=== PATIENT | male | born 1945 | race Caucasian/White ===

== ENCOUNTER 2024-12-15 13:46 | Emergency (ER) | payer MEDICARE, OTHER ==
[2024-12-15] MEDS ORDERED: Lidocaine 1%/Epinephrine 1:100K 10 ML VIAL ONE (14:12)
[2024-12-15] MEDS ORDERED: Sulfameth/Trimethoprim DS 800-160mg TAB ONE (14:29)
== END 2024-12-15 14:31 | disposition home or self-care (01) ==
LOC: BURERS 13:46
DX: L02.212 Cutaneous abscess of back [any part, except buttock and flank] (principal); F17.290 Nicotine dependence, other tobacco product, uncomplicated
CPT/HCPCS: 10060

== ENCOUNTER 2025-01-01 14:00 | Emergency (ER) | payer MEDICARE | END 2025-01-01 15:14 | disposition home or self-care (01) | LOC: BURERS 14:00 | DX: I10 Essential (primary) hypertension (principal); Z48.817 Encounter for surgical aftercare following surgery on the skin and subcutaneous tissue; F17.290 Nicotine dependence, other tobacco product, uncomplicated | CPT/HCPCS: 99283 ==